=== PATIENT | female | born 1990 | race African-American/Black ===

== ENCOUNTER 2017-02-04 22:39 | Emergency (ER) | payer OTHER, MEDICAID ==
[~2017-02-04] VITALS: Ht 160 cm; Wt 72.6 kg
[~2017-02-04 22:39] MED LIST: AMOXICILLIN500 M1 PO; CIPRO500 MG PO; ERYTHROMYCIN E3.5 G3 OPHTHALMIC; FLAGYL500 MG PO; HYDROCODONE-AP1 EAC6 PO; IMPLANON; KEFLEX500 MG PO; NORCO 5-325 TA1 EACH PO; PHENAZOPYRIDIN200 M2 PO; PHENERGAN 25 MG25 M1 PO; TORADOL 10 MG T10 MG PO; TRAMADOL 50 MG50 MG PO; TRINATE TABLET1 TAB PO; WOMEN'S DAILY1 EACH PO; birth control
[2017-02-04 23:28] VITALS: BP 133/82
--- NOTE | 2017-02-05 11:10 | EKG ---
[place] [address] ELECTROCARDIOGRAM REPORT Name: AMANDAPRABHJOT AURORA [id number] Admission: 02/04/17 Attend Phys: Discharge: 02/04/17 Date of : 88 Report #: [id number] THIS REPORT FOR: //name// [facility] ED Test Date: 2017-02-04 Test Time: 22:44:58 Pat Name: PRABHJOT PATEL Department: Room: Gender: F Baker Bench: 99 : 1990 Requested By: Hany Walsh Order Number: [id number] MD: [employer] Measurements Intervals [place] Rate: 83 P: 46 MD: 133 QRS: 38 QRSD: 81 T: 4 QT: 380 QTc: 447 Interpretive Statements Sinus rhythm Baseline wander in lead(s) V4,V5 Compared to ECG 04/27/2015 23:16:09 No significant changes Electronically Signed On 02-05-2017 11:09:47 [employer]ISE [employer] by [employer] [email or web address] <ELECTRONICALLY SIGNED> By: Martinez Gaming MD, [facility] 02/05/17 1109 [id number] Martinez Gaming MD, FACC /EPI
== END 2017-02-04 23:28 | disposition home or self-care (01) ==
LOC: M.ERS 22:39
DX: R07.89 Other chest pain (principal); F10.99 Alcohol use, unspecified with unspecified alcohol-induced disorder; Z88.1 Allergy status to other antibiotic agents

== ENCOUNTER 2017-03-02 22:56 | Emergency (ER) | payer OTHER, MEDICAID ==
[~2017-03-02] VITALS: Ht 160 cm; Wt 70.8 kg
[2017-03-02 23:35] LABS: URINE BILIRUBIN NEGATIVE (Negative); URINE BLOOD 3+ (Negative); URINE CLARITY CLOUDY; URINE COLOR RED; URINE GLUCOSE-RANDOM NEGATIVE (Negative); URINE KETONES NEGATIVE (Negative); URINE LEUKOCYTES-REFLEX NEGATIVE (Negative); URINE NITRITE-REFLEX NEGATIVE (Negative); URINE PROTEIN 2+ (Negative); URINE SPECIFIC GRAVITY >= 1.030 (1.005-1.030); URINE UROBILINOGEN 0.2 E.U./dl (0.2-1.0)
[2017-03-02 23:53] LABS: AMP/METHAMP Negative (Negative); BARBITURATES Negative (Negative); BENZODIAZEPINES Negative (Negative); COCAINE Negative (Negative); METHADONE Negative (Negative); OPIATES Negative (Negative); PCP Negative (Negative); THC Negative (Negative)
[2017-03-03 00:29] LABS: CASTS None Seen /LPF (None Seen); SQUAMOUS 4-10 Moderate /LPF (0-3)
[2017-03-03 00:30] LABS: CRYSTALS None Seen /LPF (None Seen); URINE RBC >20 Many /HPF (0-2); URINE WBC-REFLEX 0-5 Rare /HPF (0-5)
[2017-03-03 00:56] LABS: ABSOLUTE BASOPHILS 0.1 thou/uL (0.0-0.2); ABSOLUTE EOSINOPHILS 0.1 thou/uL (0.0-0.7); ABSOLUTE MONOCYTES 0.8 thou/uL (0.0-1.2); ABSOLUTE NEUTROPHILS 5.6 thou/uL (1.6-8.1); BASOPHILS 0.8 %; EOSINOPHILS 0.9 %; HEMATOCRIT 40.9 % (37.0-47.0); HEMOGLOBIN 13.9 gm/dL (12.0-15.0); LYMPHOCYTES 31.7 %; MCHC 33.9 g/dL (28.0-37.0); MCV 88.7 fL (80.0-100.0); MPV 8.2 fl. (7.2-11.1); NUCLEATED RBCS 0 /100WBC; PLATELET COUNT* 263 thou/uL (150-400); POLYS 58.6 %; RBC 4.62 mil/uL (4.20-5.00); RDW-CV 13.7 % (10.5-14.5); WBC 9.6 thou/uL (4.0-11.0)
[2017-03-03 01:09] LABS: CALCIUM 9.5 mg/dL (8.5-10.1); CREATININE 0.7 mg/dL (0.6-1.3); POTASSIUM 3.8 mmol/L (3.5-5.1)
[2017-03-03 01:14] LABS: ALBUMIN 3.8 g/dL (3.4-5.0); TOTAL BILIRUBIN 0.2 mg/dL (<0.1-1.0); TOTAL PROTEIN 7.5 g/dL (6.4-8.2)
[2017-03-03] MEDS ORDERED: FLEXERIL PO (03:04)
[2017-03-03] MEDS ORDERED: IBUPROFEN 800800 MG PO (03:04)
[2017-03-03 03:29] VITALS: BP 97/66
== END 2017-03-03 03:32 | disposition home or self-care (01) ==
LOC: M.ERS 22:56
PROVIDERS: Emergency Medicine; Nurse Practitioner Family
DX: R10.31 Right lower quadrant pain (principal); M54.5 Low back pain; Z88.8 Allergy status to other drugs, medicaments and biological substances

== ENCOUNTER 2017-09-06 20:08 | Emergency (ER) | payer OTHER ==
[~2017-09-06] VITALS: Ht 157.5 cm; Wt 74.8 kg
[~2017-09-06 20:08] MED LIST changes: +FLEXERIL PO; +IBUPROFEN 800800 MG PO
[2017-09-06] MEDS ORDERED: [UNRECOGNIZED DRUG - REMARK] (21:35)
[2017-09-06 22:17] VITALS: BP 109/71
== END 2017-09-06 22:19 | disposition home or self-care (01) ==
LOC: M.ERS 20:08
DX: S50.02XA Contusion of left elbow, initial encounter (principal); Z34.90 Encounter for supervision of normal pregnancy, unspecified, unspecified trimester; Z88.8 Allergy status to other drugs, medicaments and biological substances; W18.39XA Other fall on same level, initial encounter; Y93.89 Activity, other specified; Y92.89 Other specified places as the place of occurrence of the external cause; Y99.8 Other external cause status